=== PATIENT | male | born 1975 | race Caucasian/White ===

== ENCOUNTER → 2021-01-20 13:22 | Outpatient (CLI) | payer OTHER, SELFPAY ==
--- NOTE | ~2021-01-20 | XR_ITS ---
XR lumbar spine min 4V DATE: 01/20/2021 13:53 INDICATION: Lumbago, right sciatica TECHNIQUE: AP, bilateral oblique, lateral and coned lateral lumbosacral views COMPARISON: None FINDINGS: There is diffuse osteopenia. No fracture or bone destruction, spondylolysis or spondylolisthesis. There is mild degenerative spurr ing at L1-2, L2-3 and L3-4. Lumbar and lumbosacral spaces are relatively well preserved. The lumbar p edicles are intact. The sacroiliac joints are unremarkable. There is mild abdominal aortic and iliac arterial calcification. IMPRESSION: Diffuse osteopenia Mild degenerative disc disease Reviewed, dictated and finalized at location A. [employer]
== END ==
PROVIDERS: PCP Family Medicine; Visit Provider Family Medicine
DX: M54.41 Lumbago with sciatica, right side (principal); M85.88 Other specified disorders of bone density and structure, other site; M51.36 Other intervertebral disc degeneration, lumbar region
CPT/HCPCS: 72110

== ENCOUNTER → 2021-04-01 15:49 | Outpatient (CLI) | payer OTHER, SELFPAY ==
--- NOTE | ~2021-04-01 | MR_ITS ---
EXAMINATION: MR lumbar spine wo con DATE: 04/01/2021 16:38 INDICATION: Low back pain. TECHNIQUE: Magnetic resonance imaging (MRI) of the lumbar spine was performed without intravenous con trast. Sequences included sagittal T2-weighted FSE, sagittal T2-weighted FS FSE, sagittal T1-weighted FSE, and axial T2-weighted FSE. COMPARISON: Lumbar spine radiographs 01/20/2021 FINDINGS: Bone alignment is normal. Vertebral body heights are normal. There is mildly decreased disc height at L5-S1. The distal spinal cord signal intensity is normal. The conus medullaris is at L1. T he following disc levels are specifically discussed: L1-L2: The disc does not extend beyond the endplate margin. There is no facet joint osteoarthritis. T here is no neural foraminal stenosis. There is no central canal stenosis. L2-L3: The disc does not extend beyond the endplate margin. There is no facet joint osteoarthritis. T here is no neural foraminal stenosis. There is no central canal stenosis. L3-L4: The disc is bulging and has an annular fissure. There is no facet joint osteoarthritis. There is mild bilateral neural foraminal stenosis. There is mild central canal stenosis. L4-L5: The disc is bulging and has an annular fissure. There is no facet joint osteoarthritis. There is mild bilateral neural foraminal stenosis. There is mild central canal stenosis. L5-S1: The disc is bulging and has an annular fissure. There is no facet joint osteoarthritis. There is mild left neural foraminal stenosis. There is mild central canal stenosis. IMPRESSION: 1. Mild lumbar spondylosis. Reviewed, dictated and finalized at location A. IMPRESSION: 1. Mild lumbar spondylosis.
== END ==
PROVIDERS: Visit Provider Nurse Practitioner Adult Health
DX: M47.26 Other spondylosis with radiculopathy, lumbar region (principal)
CPT/HCPCS: 72148

== ENCOUNTER → 2021-04-01 15:52 | Outpatient (CLI) | payer OTHER, SELFPAY ==
--- NOTE | ~2021-04-01 | DEXA_ITS ---
Bone Density Report Name: Nayan Lara Age: 46 Sex: Male Ethnicity: White Date of : 1975 Indication: Osteopenia Referring Provider: LE WHELAN Study: Bone densitometry was performed. Exam Date: April 01, 2021 Accession number: [id number] Bone Density: Region BMD T-score Z-score Classification AP Spine (L1-L4) 0.850 -2.2 -2.0 Osteopenia Femoral Neck (Left) 0.686 -1.8 -1.2 Osteopenia Total Hip (Left) 0.893 -0.9 -0.7 Normal Femoral Neck (Right) 0.747 -1.3 -0.7 Osteopenia Total Hip (Right) 0.916 -0.8 -0.5 Normal Total Hip Mean 0.905 -0.9 -0.6 Normal World Health Organization criteria for BMD impression classify patients as: Normal (T-score at or above -1.0), Osteopenia (T-score between -1.0 and -2.5), or Osteoporosis (T-score at or below -2.5). 10-year Fracture Risk: FRAX not reported because: Man under age 50 Clinical Information Provided by Patient: Patient maximum height was 71.5 No regular weight bearing exercise Drinks caffeinated beverages Impression: The patient's bone mass is below expected range for age, gender and ethnicity based on the Total Spine Z-score. Discussion: BONE DENSITY IS ABNORMALLY LOW FOR AGE, SEX, AND RACE. This patient's lowest Z-score is -2.0 or more below average for age, sex, and race at one or more sites. This may be due to low peak bone mass or to excessive bone loss. There may be some underlying disease or condition contributing to reduced bone mass. Further evaluation should be considered. There are no data relating bone density and fracture risk in younger men. The ISCD position is that the diagnosis of ?low bone mass? or ?osteoporosis? should not be made on densitometric criteria alone. WHO criteria only apply to men age > 50. The 10-year fracture risk calculated by FRAX is less than the threshold recommended by the National Osteoporosis Foundation (NOF) for treatment for men age > 50, and no threshold has been established for younger men. All treatment decisions require clinical judgment and consideration of individual patient factors, including patient preferences, comorbidities, previous drug use, risk factors not captured in the FRAX model (e.g., frailty, falls, vitamin D deficiency, increased bone turnover, interval significant decline in bone density) and possible under or overestimation of fracture risk by FRAX. Although pharmacologic therapy is sometimes indicated for patients with Z-scores in this range, there is little information available. A decision to treat should be based on a thorough consideration of benefits and risks. The patient should follow a healthful lifestyle (good nutrition with adequate calcium and vitamin D, and appropriate weight-bearing exercise). Follow-Up: Consider repeating this study in 2 to 3 years to reassess this patient's status
== END ==
PROVIDERS: Visit Provider Family Medicine
DX: M85.88 Other specified disorders of bone density and structure, other site (principal); M85.852 Other specified disorders of bone density and structure, left thigh; M85.851 Other specified disorders of bone density and structure, right thigh
CPT/HCPCS: 77080

== ENCOUNTER 2022-08-17 15:00 | Outpatient (RCR) | payer OTHER, SELFPAY ==
[2022-05-29 16:10] VITALS: PULSE 95
[2022-06-03 16:04] LABS: Glucose Point of Care 121 mg/dl (65-105)
[2022-07-15 15:13] LABS: Glucose Point of Care 162 mg/dl (65-105)
[2022-07-15 16:17] LABS: Glucose Point of Care 106 mg/dl (65-105)
[2022-08-10 16:26] LABS: Glucose Point of Care 112 mg/dl (65-105)
== END 2022-08-17 19:30 | disposition home or self-care (01) ==
LOC: ANHCPREHAB 15:00
PROVIDERS: PCP Family Medicine; Visit Provider Internal Medicine Cardiovascular Disease
DX: Z95.1 Presence of aortocoronary bypass graft (principal)
CPT/HCPCS: 93798

== ENCOUNTER 2023-10-04 01:25 | Day surgery (SDC) | payer OTHER, SELFPAY ==
[2023-09-23 09:50] VITALS: BMI 28.5
--- NOTE | 2023-10-01 10:46 | SUR.PREOP ---
Patient called regarding upcoming procedure. Reviewed preop instructions, appointment times, and procedure prep.
[2023-10-04 11:35] VITALS: BP 132/80; PULSE 83; RESP 18; TEMP 36.3; O2SAT 97
[2023-10-04] MEDS: LACTATED RINGERS 1,000 ML 150 ML IV CONT (11:44)
[2023-10-04 11:47] LABS: Glucose Point of Care 108 mg/dl (65-105)
--- NOTE | 2023-10-04 12:02 | WPDANESEPPF ---
Anes - Initial Pre Proc Eval Procedure: Operation Date: 10/04/23 13:00 Proposed Procedures p Esophagogastroduodenoscopy & Colonoscopy - Miguel Sweeney MD s [facility] Hemorrhoid Treatment - Miguel Sweeney MD Date/Time: 10/04/23 12:02 Surgeon: Miguel Sweeney MD Pre Op Diagnosis: HX colon polyp, Iron deficiency anemia Patient Data Age: 48 Gender: M Height: 1.8 m Weight: 92.3 kg Last Vital Signs Temp 97.4 F L 10/04/23 11:35 Pulse 83 10/04/23 11:35 Resp 18 10/04/23 11:35 BP 132/80 10/04/23 11:35 Pulse Ox 97 10/04/23 11:35 O2 Del Method Room Air 10/04/23 11:35 Allergies Allergy/AdvReac Type Severity Reaction Status Date / Time codeine AdvReac Unknown Vomiting Verified 10/04/23 11:34 Home Medications Medication Instructions Recorded Confirmed Type acetaminophen 500 mg tablet 500 mg PO Q4H PRN Pain 10/12/19 09/23/23 History (Tylenol Extra Strength) calcium polycarbophil 625 mg 1,250 mg PO DAILY 10/12/19 09/23/23 History tablet (FiberCon) blood sugar diagnostic (OneTouch #100 ea 04/24/22 09/16/23 Rx Verio test strips) blood-glucose meter (OneTouch #1 ea 04/24/22 09/16/23 Rx Verio Reflect Start kit) lancets 33 gauge (OneTouch Delica #100 ea 04/24/22 09/16/23 Rx Lancets) B-complex with vitamin C 1 cap PO DAILY 06/02/22 09/23/23 History atorvastatin 20 mg tablet 40 mg PO DAILY 06/02/22 09/23/23 History metoprolol tartrate 25 mg tablet 25 mg PO BID 06/02/22 09/23/23 History ferrous sulfate 325 mg (65 mg 325 mg PO DAILY 08/06/22 09/23/23 History iron) tablet lisinopril 20 mg tablet 20 mg PO DAILY #90 tabs 08/06/22 09/23/23 Rx magnesium chloride 71.5 mg 71.5 mg PO BID 08/06/22 09/23/23 History (magnesium chloride) tablet,delayed release (Slow-Mag) semaglutide 1 mg/dose (4 mg/3 mL) 1 mg (0.75 mL) subcut WEEKLY #12 mL 10/23/22 09/23/23 Rx subcutaneous pen injector (Ozempic) empagliflozin 25 mg tablet 25 mg PO DAILY #90 tabs 12/23/22 09/23/23 Rx (Jardiance) metformin 500 mg tablet,extended 1,000 mg PO BID #360 tabs 12/23/22 09/23/23 Rx release 24 hr arginine HCl (L-arginine) 1,000 mg 1,000 mg PO DAILY 02/10/23 09/23/23 History tablet aspirin 81 mg tablet,delayed 81 mg PO DAILY #90 tabs 02/10/23 09/23/23 Rx release (Adult Low Dose Aspirin) omeprazole 20 mg capsule,delayed 20 mg PO DAILY #90 caps 03/22/23 09/23/23 Rx release pen needle, diabetic 31 gauge x See Rx Instructions .Route 06/28/23 09/23/23 Rx 3/16 (BD Ultra-Fine Mini Pen .COMPLEX #180 syringes Needle) clotrimazole-betamethasone 1 1 applic topical BID 2 weeks #30 08/10/23 09/23/23 Rx %-0.05 % topical cream grams insulin degludec 100 unit/mL (3 20 unit (0.2 mL) subcut . q.h.s. 08/26/23 09/23/23 Rx mL) subcutaneous pen (Tresiba #3 mL FlexTouch U-100 insulin) Laboratory Tests 10/04/23 11:42 POC Capillary Glucose 108 H mg/dl (65-105) Patient hx anesthesia problems: none Family hx anesthesia problems: none Results Review: All pre-operative results and documents have been reviewed as part of the pre-operative evaluation. 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 Diabetes mellitus with hyperglycemia, with long-term current use of insulin Glucose 95 with hemoglobin A1c 7.2 with microalbumin ratio of 10 on 08/04/2022. Glucose 98 with hemoglobin A1c 6.7 on 01/19/2023. Fasting glucose 103 with hemoglobin A1c 6.2 on 09/13/2023. Herpes zoster (~02/12/23) left face History of rectal bleeding Iron deficiency Iron 86 with 22% saturation and hemoglobin 14.9 on 08/04/20
--- NOTE | 2023-10-04 12:25 | PM.HPGS ---
History of Present Illness History of Present Illness Consent: Risks, benefits, and alternatives have been discussed and questions answered. Patient agrees to proceed with procedure. Chief complaint: HX colon polyp, Iron deficiency anemia Narrative: Nayan Lara is a 48 year old male with intermittent blood in stools probably from hemorrhoids, also mild angela, gerd but well controlled on omeprazole unless he misses a dose. Last colonoscopy 2019 with polyp Review of Systems Constitutional: Constitutional: Denies headache(s) and Denies weakness Eyes: Eyes: Denies blurry vision ENT: Reports Normal hearing present, Denies headache(s) and Denies neck pain Cardiovascular: Cardiovascular: Denies chest pain and Denies dyspnea Respiratory: Respiratory: Denies dyspnea Gastrointestinal: Gastrointestinal: Reports no additional gastrointestinal complaints Genitourinary: Genitourinary: Denies dysuria Musculoskeletal: Musculoskeletal: Denies neck pain Integumentary/Breasts: Skin/Breast: Denies dry skin Neurologic: Reports Normal hearing present, Denies headache(s) and Denies weakness Psychiatric: Psychiatric: Denies anxiety Endocrine: Endocrine: Denies change in body appearance Hematologic/Lymphatic: Hematologic/Lymphatic: Denies easy bleeding Allergic/Immunologic: Allergic/Immunologic: Denies urticaria [facility] Past Medical History Medical History (Updated 10/04/23 @ 12:26 by Miguel Sweeney MD) 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 Diabetes mellitus with hyperglycemia, with long-term current use of insulin Glucose 95 with hemoglobin A1c 7.2 with microalbumin ratio of 10 on 08/04/2022. Glucose 98 with hemoglobin A1c 6.7 on 01/19/2023. Fasting glucose 103 with hemoglobin A1c 6.2 on 09/13/2023. GERD (gastroesophageal reflux disease) Herpes zoster (~02/12/23) left face History of rectal bleeding Iron deficiency Iron 86 with 22% saturation and hemoglobin 14.9 on 08/04/2022. Iron 63 with 18% saturation and ferritin 9 with hemoglobin 13.1 on 01/19/2022. Iron 86 with 23% saturation and ferritin low at 10 with hemoglobin 14.2 on 09/13/2023. Muscle spasm Nail fungal infection (~02/04/22) toenails Osteopenia determined by x-ray (01/20/21) DEXA scan 04/01/2021 with T-score -2.2 of the spine and -1.8 of the left hip and -1.3 right hip Overweight (BMI 25.0-29.9) Tinea cruris Type 2 diabetes mellitus without complication, without long-term current use of insulin Vasospastic angina (~2008) followed by cabinetmaker apprentice. Cardiac catheterization Was negative 2008. negative stress test 2016 Vitamin D deficiency, unspecified Level normal at 42 on 08/04/2022. Level low at 25 on 09/13/2023. Family History Family History Father Hypertension, Onset Age: 66 Family history of cardiovascular disease Family history of malignant neoplasm of esophagus Grandparent Family history of cardiovascular disease, Onset Age: 84 Family history of primary malignant neoplasm of liver Mother Family history of chronic obstructive pulmonary disease Family history of irritable bowel syndrome Family history of colonic diverticulitis Other Diabetes mellitus Social History Social History (Updated 02/10/23 @ 08:37 by Bhumi Fam, [facility]) Smoking packs per day: 1 Smoking cigarettes per day: 20.0 Years smoked: 21 Smoking pack-years: 21.00 Smoking status: Former smoker Tobacco type: cigarettes Smoking end date: 11/29/10 Alcohol intake: current Alcohol use details: occasional- 2 per month Substance use: never Substance use type: does not use Lack of Transportation: No Lack of Food: Never T
[2023-10-04] MEDS: BENZOCAINE (*SP) 60 ML SPRAY CAN (HURRICAINE) 1 SPRAY MUCOUS MEM (12:32)
--- NOTE | 2023-10-04 12:39 | SUR.OPER ---
EGD: [id number] COLON: Start 1233
--- NOTE | 2023-10-04 12:54 | W.PM.PROC2 ---
Procedure Note - Detailed Date of Procedure 10/04/23 Pre-op Diagnosis rectal bleeding, hemorrhoids Post-op Diagnosis Same Procedure Performed irc of internal hemorrhoids Surgeon Miguel Sweeney MD Anesthesia MAC (also had colonoscopy) Findings found small localized erythema site with inflammation in anus with anoscope. Also grade II internal hemorrhoids, then introduced IRC probe and treated 1.5 seconds x6 Description of Procedure irc on internal hemorrhoids
[2023-10-04 12:56] VITALS: BP 97/69; PULSE 84; RESP 21; O2SAT 97
[2023-10-04 13:06] VITALS: BP 113/77; PULSE 76; RESP 20; O2SAT 97
[2023-10-04 13:16] VITALS: BP 113/77; PULSE 76; RESP 20; O2SAT 97
[2023-10-04 13:20] LABS: Glucose Point of Care 89 mg/dl (65-105)
== END 2023-10-04 13:31 | disposition home or self-care (01) ==
PROVIDERS: PCP Family Medicine; Visit Provider Internal Medicine Gastroenterology
PROC: 0DJ08ZZ Inspection of Upper Intestinal Tract, Via Natural or Artificial Opening Endoscopic (ICD-10-PCS; CPT 43235; principal; 2023-10-04 13:00)
PROC: (CPT 46930; 2023-10-04 13:00)
DX: E61.1 Iron deficiency (principal); K29.80 Duodenitis without bleeding; K57.30 Diverticulosis of large intestine without perforation or abscess without bleeding; K29.50 Unspecified chronic gastritis without bleeding; K63.5 Polyp of colon; K64.1 Second degree hemorrhoids; K62.6 Ulcer of anus and rectum; K64.8 Other hemorrhoids; I25.10 Atherosclerotic heart disease of native coronary artery without angina pectoris; K21.9 Gastro-esophageal reflux disease without esophagitis; K29.70 Gastritis, unspecified, without bleeding; G89.29 Other chronic pain; E11.65 Type 2 diabetes mellitus with hyperglycemia; M85.80 Other specified disorders of bone density and structure, unspecified site; E55.9 Vitamin D deficiency, unspecified; Z79.4 Long term (current) use of insulin; Z79.85 Long-term (current) use of injectable non-insulin antidiabetic drugs; Z79.84 Long term (current) use of oral hypoglycemic drugs; Z79.82 Long term (current) use of aspirin; Z87.891 Personal history of nicotine dependence; Z86.010 Personal history of colon polyps; Z95.1 Presence of aortocoronary bypass graft; Z80.0 Family history of malignant neoplasm of digestive organs; Z82.49 Family history of ischemic heart disease and other diseases of the circulatory system
CPT/HCPCS: 43239; 45385; 45380; 46930; 82948; 88305; J2704; J7120

== ENCOUNTER 2023-11-11 08:51 | Outpatient (CLI) | payer OTHER, SELFPAY ==
--- NOTE | ~2023-11-11 | DEXA_ITS ---
Bone Density Report Name: FLORY GRAJEDA Age: 48 Sex: Male Ethnicity: White Date of : 1975 Indication: other specified disorders of bone density and structure Referring Provider: LE WHELAN Study: Bone densitometry was performed. Exam Date: November 11, 2023 Accession number: [id number] Bone Density: Region BMD T-score Z-score Classification AP Spine(L1-L4) 0.847 -2.2 -1.9 Osteopenia Femoral Neck (Left) 0.683 -1.8 -1.1 Osteopenia Total Hip (Left) 0.875 -1.0 -0.8 Normal Femoral Neck (Right) 0.680 -1.8 -1.2 Osteopenia Total Hip (Right) 0.897 -0.9 -0.6 Normal Total Hip Mean 0.886 -1.0 -0.7 Normal World Health Organization criteria for BMD impression classify patients as: Normal (T-score at or above -1.0), Osteopenia (T-score between -1.0 and -2.5), or Osteoporosis (T-score at or below -2.5). 10-year Fracture Risk: FRAX not reported because: Man under age 50 Clinical Information Provided by Patient: Patient maximum height was 71 Drinks caffeinated beverages Impression: The patient's bone mass is within expected range for age, gender and ethnicity. Discussion: BONE DENSITY IS WITHIN EXPECTED LIMITS FOR AGE, SEX AND RACE. Bone density is within expected limits for age, sex and race at all sites measured. The patient should follow a healthful lifestyle (good nutrition with adequate calcium and vitamin D, and appropriate weight-bearing exercise). Follow-Up: Consider repeating this study in 2 to 3 years to reassess this patient's status, or sooner if there is some new clinical indication. Reported by: AILYN on 11/11/2023 9:35:00 AM. Reviewed, dictated and finalized at location [facility]
== END 2023-11-11 08:52 | disposition home or self-care (01) ==
PROVIDERS: PCP Family Medicine; Visit Provider Family Medicine
DX: M85.88 Other specified disorders of bone density and structure, other site (principal); M85.852 Other specified disorders of bone density and structure, left thigh; M85.851 Other specified disorders of bone density and structure, right thigh
CPT/HCPCS: 77080